=== PATIENT | female | born 1970 | race African-American/Black ===

== ENCOUNTER 2024-03-14 15:18 | Outpatient (CLI) | payer OTHER, SELFPAY ==
--- NOTE | ~2024-03-14 | XR_ITS ---
EXAMINATION: XR lumbar spine 2-3V DATE: 03/14/2024 15:38 INDICATION: Low back pain, unspecified. TECHNIQUE: 3 views of lumbar spine including standing views were obtained. COMPARISON: None. FINDINGS: There is 10 degrees levoscoliosis of lumbar spine. Vertebral body heights are normal. Inter vertebral disc heights are normal. There are endplate osteophytes at multiple levels. There is multil evel mild facet joint osteoarthritis. Surgical clips in the right upper quadrant are likely from chol ecystectomy. IMPRESSION: 1. Lumbar levoscoliosis. 2. Mild lumbar spondylosis. Reviewed, dictated and finalized at location A. [facility] DUMPER
== END 2024-03-14 15:19 | disposition home or self-care (01) ==
LOC: MICIMG 15:21
PROVIDERS: PCP Family Medicine; Visit Provider Physician Assistant
DX: M41.86 Other forms of scoliosis, lumbar region (principal); M47.816 Spondylosis without myelopathy or radiculopathy, lumbar region
CPT/HCPCS: 72100

== ENCOUNTER 2024-06-29 14:48 | Outpatient (CLI) | payer OTHER, SELFPAY ==
--- NOTE | ~2024-06-29 | XR_ITS ---
XR finger 3rd LT min 2V, XR hand LT min 3V 06/29/2024 15:07 Indication: Left third finger pain Procedure: 3 views left hand and 3 views left third finger Comparison: No prior studies for comparison. Findings: There is a small ossific density along the radial aspect of the third PIP joint, likely rel ated to remote trauma or degenerative change. No acute fractures identified. There is normal anatomic alignment. No foreign bodies. Impression: 1: No acute bone or joint abnormality. Reviewed, dictated and finalized at location A. Impression: 1: No acute bone or joint abnormality. Impression: 1: No acute bone or joint abnormality.
== END 2024-06-29 14:49 | disposition home or self-care (01) ==
LOC: MICIMG 14:49
PROVIDERS: PCP Family Medicine; Visit Provider Plastic Surgery
DX: M79.645 Pain in left finger(s) (principal); M79.642 Pain in left hand
CPT/HCPCS: 73130; 73140

== ENCOUNTER 2025-01-03 00:51 | Day surgery (SDC) | payer OTHER, SELFPAY ==
[2024-12-26 12:51] VITALS: BMI 31.2
[2025-01-03 08:09] VITALS: BP 90/65; PULSE 77; RESP 14; TEMP 36.2; O2SAT 96; BMI 31.7
--- NOTE | 2025-01-03 08:16 | WPDANESEPPF ---
Anes - Initial Pre Proc Eval Procedure: Operation Date: 01/03/25 09:00 Proposed Procedures p Esophagogastroduodenoscopy - Gary Contreras MD Date/Time: 01/03/25 08:16 Surgeon: Gary Contreras MD Pre Op Diagnosis: Anemia, unspecified Patient Data Age: 54 Gender: F Height: 1.55 m Weight: 75 kg Allergies Allergy/AdvReac Type Severity Reaction Status Date / Time No Known Allergies Allergy Verified 12/26/24 15:20 Home Medications ?Medication ?Instructions ?Recorded ?Confirmed ?Type metformin 500 mg tablet 500 mg PO DAILY #180 tabs 05/26/24 12/26/24 Rx dulaglutide 3 mg/0.5 mL 3 mg (0.5 mL) subcut WEEKLY #6 mL 11/07/24 12/26/24 Rx subcutaneous pen injector losartan 50 mg tablet 50 mg PO DAILY #90 tabs 11/21/24 12/26/24 Rx rosuvastatin 10 mg tablet See Rx Instructions .Route 11/25/24 12/26/24 Rx .COMPLEX #90 tabs triamterene 37.5 See Rx Instructions .Route 11/25/24 12/26/24 Rx mg-hydrochlorothiazide 25 mg .COMPLEX #90 caps capsule Patient hx anesthesia problems: none Family hx anesthesia problems: none Results Review: All pre-operative results and documents have been reviewed as part of the pre-operative evaluation. [facility] Past Medical History Medical History Stressful workplace Lumbar sprain Sprain of upper back Neck sprain Strain of mid-back Acute rhinosinusitis Breast cancer screening Vulvovaginal candidiasis Establishing care with new doctor, encounter for Hyperlipidemia Benign essential HTN Diabetes mellitus with hyperglycemia Family History Family History Mother Hypertension Breast cancer, Onset Age: 40 Sibling Diabetes mellitus Heart disease Social History Social History Social History: Single Smoking status: Never smoker Second hand tobacco smoke exposure: No Alcohol intake: never Substance use: never Substance use type: does not use Lack of Transportation: No Lack of Food: Never True Current Housing: I Have Housing Concerned About Future Housing: No Difficulty Paying Gas/Electric Bills: No Difficulty Paying for Meds: No Currently Unemployed: No Education: Bachelor's Degree Difficulty w/ Childcare or Family Care: No Living arrangements: with family Occupation/Education: occupation Gender identity (if verbalized by the patient): Female Sexual Orientation (if Verbalized by the Patient): Straight or Heterosexual Anes - Eval Final PreProcedure Day of Procedure 01/03/25 08:16 Patient weight: obese Heart: regular rate and rhythm Lungs: clear to auscultation Airway: Mallampati scale class II Neurological: alert and oriented Last oral intake: >/= 8 hours ASA classification: III Emergent: no Anesthetic plan: proceed Anesthesia type and monitoring: general GIVS and standard monitoring Results Review: All pre-operative results and documents have been reviewed as part of the pre-operative evaluation. Informed Consent: The patient's anesthetic plan and its attendant risks and benefits were discussed with the patient/family/POA. Questions were solicited and answers provided to the satisfaction of the patient/family/POA.
[2025-01-03 08:28] LABS: BEDSIDEPREGUCG Negative (Negative)
[2025-01-03] MEDS: LACTATED RINGERS 1,000 ML 150 ML IV CONT (08:37)
[2025-01-03] MEDS: SIMETHICONE ORAL SUSPENSION 20 MG/0.3 ML 30 ML BOTTLE 1.8 ML PO (08:38)
--- NOTE | 2025-01-03 09:04 | PM.IMHP ---
H&P: HPI History of Present Illness Date/Time: 01/03/25 09:04 Chief Complaint: Epigastric pain-belching Narrative: Patient referred for EGD by her primary care physician for frequent indigestion, belching and epigastric discomfort postprandially. This has been happening for several months now. There is no unintentional weight loss, nausea, vomiting, hematemesis or melena. Review of Systems Review of Systems: All systems reviewed & are unremarkable except as noted in HPI and below PMFSH Past Medical History Medical History Stressful workplace Lumbar sprain Sprain of upper back Neck sprain Strain of mid-back Acute rhinosinusitis Breast cancer screening Vulvovaginal candidiasis Establishing care with new doctor, encounter for Hyperlipidemia Benign essential HTN Diabetes mellitus with hyperglycemia Family History Family History Mother Hypertension Breast cancer, Onset Age: 40 Sibling Diabetes mellitus Heart disease Social History Social History Social History: Single Smoking status: Never smoker Second hand tobacco smoke exposure: No Alcohol intake: never Substance use: never Substance use type: does not use Lack of Transportation: No Lack of Food: Never True Current Housing: I Have Housing Concerned About Future Housing: No Difficulty Paying Gas/Electric Bills: No Difficulty Paying for Meds: No Currently Unemployed: No Education: Bachelor's Degree Difficulty w/ Childcare or Family Care: No Living arrangements: with family Occupation/Education: occupation Gender identity (if verbalized by the patient): Female Sexual Orientation (if Verbalized by the Patient): Straight or Heterosexual Meds Home Medications and Allergies Home Medications ?Medication ?Instructions ?Recorded ?Confirmed ?Type metformin 500 mg tablet 500 mg PO DAILY #180 tabs 05/26/24 01/03/25 Rx dulaglutide 3 mg/0.5 mL 3 mg (0.5 mL) subcut WEEKLY #6 mL 11/07/24 01/03/25 Rx subcutaneous pen injector losartan 50 mg tablet 50 mg PO DAILY #90 tabs 11/21/24 01/03/25 Rx rosuvastatin 10 mg tablet See Rx Instructions .Route 11/25/24 01/03/25 Rx .COMPLEX #90 tabs triamterene 37.5 See Rx Instructions .Route 11/25/24 01/03/25 Rx mg-hydrochlorothiazide 25 mg .COMPLEX #90 caps capsule Allergies Allergy/AdvReac Type Severity Reaction Status Date / Time No Known Allergies Allergy Verified 01/03/25 08:17 Vital Signs Vital Signs - 24 hr 01/03/25 08:09 Temperature 97.2 F L Pulse Rate 77 Respiratory Rate 14 Blood Pressure 90/65 L Pulse Oximetry 96 Oxygen Delivery Room Air Exam Const: General: cooperative and healthy appearing Resp: Effort & Inspection: normal respiratory effort and able to speak in complete sentences Auscultation: clear to auscultation bilaterally Cardio: Rate: regular rate Rhythm: regular rhythm GI: Inspection: normal to inspection GI Palp: No No hepatosplenomegaly present Auscultation: normal bowel sounds Rectal Exam: deferred Skin: General skin exam: normal color Psych: Appearance: grossly normal Mental Status: mental status grossly normal Assessment and Plan Assessment and plan (1) Dyspepsia: Code(s): R10.13 - Epigastric pain Status: Acute Assessment and Plan: The patient is deemed a good candidate for the procedure. Consent signed. Will proceed.
--- NOTE | 2025-01-03 09:22 | S_PTH ---
PATIENT: Edmond Romero LOC: [facility] U#:[id number] AGE/SX: 54/F ROOM: RE01/03/[address]: Gary Contreras MD : 1970 BED: DIS: 01/03/2025 SPEC #: [id number] RECD: 01/03/25 10:28 STATUS: SUNIL REQ #: [id number] TERRI: 01/03/25 09:[address]: Gary Contreras DEPT: [facility] Surgical RECD BY: Angela Galeano ENTERED: 01/03/25 10:29 SP TYPE: Surgical OTHR DR: Dariel Carranza MD Tissues: A - Gastric Biopsy B - Gastric Biopsy Procedures: Hematoxylin and Eosin Stain Gross and Microscopic Level 4
[2025-01-03 09:27] VITALS: BP 107/72; PULSE 82; RESP 83; O2SAT 98
[2025-01-03 09:37] VITALS: BP 107/72; PULSE 81; RESP 80; O2SAT 98
[2025-01-03 09:47] VITALS: BP 112/77; PULSE 76; RESP 78; O2SAT 96
== END 2025-01-03 10:05 | disposition home or self-care (01) ==
PROVIDERS: PCP Family Medicine; Referring Provider Family Medicine; Visit Provider Internal Medicine Gastroenterology
PROC: 0DJ08ZZ Inspection of Upper Intestinal Tract, Via Natural or Artificial Opening Endoscopic (ICD-10-PCS; CPT 43239; principal; 2025-01-03 09:00)
DX: K31.84 Gastroparesis (principal); E78.5 Hyperlipidemia, unspecified; I10 Essential (primary) hypertension; E11.65 Type 2 diabetes mellitus with hyperglycemia; E66.9 Obesity, unspecified; Z68.31 Body mass index [BMI] 31.0-31.9, adult; Z79.84 Long term (current) use of oral hypoglycemic drugs; Z79.85 Long-term (current) use of injectable non-insulin antidiabetic drugs; Z80.3 Family history of malignant neoplasm of breast; Z82.49 Family history of ischemic heart disease and other diseases of the circulatory system
CPT/HCPCS: 43239; 82948; 88305; J2003; J2704; J7120

== ENCOUNTER 2025-01-27 13:59 | Outpatient (CLI) | payer OTHER, SELFPAY ==
--- NOTE | ~2025-01-27 | XR_ITS ---
EXAMINATION: XR hip LT 2V w AP pelvis DATE: 01/27/2025 14:13 INDICATION: Left hip pain TECHNIQUE: Left hip and pelvic x-rays were obtained. COMPARISON: None. FINDINGS: Mild buttressing of the left femoral neck. Mild osteoarthritic appearing degenerative changes in both hips. No acute or aggressive bony or soft tissue process. Access Tech pelvic bones obscured partly by overlying stool and bowel gas. IMPRESSION: 1. No acute or aggressive bony process. Degenerative changes in both hips and buttressing seen in the left femoral neck. 2. For persisting or worsening hip pain refractory to conservative therapy, consider correlation with MRI for optimal sensitivity. Reviewed, dictated and finalized at location A. STRAIGHTENER IMPRESSION: 1. No acute or aggressive bony process. Degenerative changes in both hips and b uttressing seen in the left femoral neck. 2. For persisting or worsening hip pain refractory to conservative therapy, con mirror department supervisor correlation with MRI for optimal sensitivity.
== END 2025-01-27 14:00 | disposition home or self-care (01) ==
LOC: MICIMG 14:00
PROVIDERS: PCP Family Medicine
DX: M16.0 Bilateral primary osteoarthritis of hip (principal)
CPT/HCPCS: 73502